=== PATIENT | male | born 1940 | race Caucasian/White ===

== ENCOUNTER 2018-01-30 07:00 | Inpatient (IN) | payer MEDICARE ==
[~2018-01-30] VITALS: Ht 180.3 cm; Wt 116.8 kg
[~2018-01-30 07:00] MED LIST: ASPI-496 PO; LEVO150T5 PO; LOSA50TA7 PO; PSYL0.528 PO; SPIR25TA5 PO
[2018-02-01] MEDS ORDERED: TRANEXAMIC ACID 100 MG/ML, 10ML ONE ×2 (07:39→14:19)
[2018-02-01] MEDS ORDERED: KETOROLAC 60 MG/2 ML ONE (07:39)
[2018-02-01] MEDS ORDERED: ROPIvacaine/PF 0.2%, 20 ML ONE (07:40)
[2018-02-01] MEDS ORDERED: EPINEPHRINE 1 MG/ML, 1ML ONE (07:40)
[2018-02-01] MEDS ORDERED: morphine SULFATE/PF 1 MG/ML, 10ML ONE (07:40)
[2018-02-01] MEDS ORDERED: VANCOMYCIN PER PHARMACY MC STA (11:02)
[2018-02-01] MEDS ORDERED: ACETAMINOPHEN 500 MG TABLET ONE (11:33)
[2018-02-01] MEDS ORDERED: GABAPENTIN 300 MG CAPSULE ONE (11:33)
[2018-02-01] MEDS ORDERED: LACTATED RINGERS 1,000 ML IV SCH (11:35)
[2018-02-01] MEDS ORDERED: FENTANYL PF 250 MCG/5ML ONE (11:36)
[2018-02-01] MEDS ORDERED: MIDAZOLAM 1 MG/ML, 2ML ONE (11:36)
[2018-02-01] MEDS ORDERED: OXYC20TA42 PO (11:43)
[2018-02-01] MEDS ORDERED: CELE200C PO (11:43)
[2018-02-01] MEDS ORDERED: ACETAMINOPHEN 500 MG TABLET PO ONE (12:00)
[2018-02-01] MEDS ORDERED: GABAPENTIN 300 MG CAPSULE PO ONE (12:00)
[2018-02-01] MEDS ORDERED: VANCOMYCIN 2,000 MG in SODIUM CHLORIDE 0.9% 500 ML IV ONE (12:30)
[2018-02-01] MEDS ORDERED: ONDANSETRON ODT 8 MG PO PRN (14:00)
[2018-02-01] MEDS ORDERED: PROMETHAZINE 25 MG/ML, 1ML IV PRN (14:00)
[2018-02-01] MEDS ORDERED: FENTANYL PF 100 MCG/2ML IV PRN (14:00)
[2018-02-01] MEDS ORDERED: hydrALAzine 20 MG/ML, 1ML IV PRN (14:00)
[2018-02-01] MEDS ORDERED: EPHEDRINE 50 MG/ML, 1ML IVPush PRN (14:00)
[2018-02-01] MEDS ORDERED: ONDANSETRON 2MG/ML, 2ML IV PRN (14:00)
[2018-02-01] MEDS ORDERED: ALBUTEROL SULFATE 2.5 MG/3 ML NPPB PRN (14:00)
[2018-02-01] MEDS ORDERED: MIDAZOLAM 1 MG/ML, 2ML IV PRN (14:00)
[2018-02-01] MEDS ORDERED: MEPERIDINE/PF 25MG/0.5ML IVPush PRN (14:00)
[2018-02-01] MEDS ORDERED: OXYcodone 5 MG/5 ML ORAL.SOL UDC PO PRN (14:00)
[2018-02-01] MEDS ORDERED: PROMETHAZINE 12.5 MG SUPP PR PRN (14:00)
[2018-02-01] MEDS ORDERED: LABETALOL 5MG/ML, 20ML IV PRN (14:00)
[2018-02-01] MEDS ORDERED: LORazepam 2 MG/ML, 1ML IVPush PRN (14:00)
[2018-02-01] MEDS ORDERED: MORPHINE SULFATE 4 MG/ML, 1ML IVPush PRN (14:00)
[2018-02-01] MEDS ORDERED: HYDROmorphone 2 MG/ML, 1ML ONE (14:58)
[2018-02-01] MEDS ORDERED: OXYcodone 5 MG/5 ML ORAL.SOL UDC ONE (14:59)
[2018-02-01] MEDS: HYDROmorphone 1 MG/ML, 1ML IV PRN ×2 (15:05→15:26)
[2018-02-01] MEDS ORDERED: POTASSIUM CHLORIDE 10 MEQ in D5%-0.45% NACL 1,000 ML IV SCH (17:30)
[2018-02-01] MEDS ORDERED: ONDANSETRON 2MG/ML, 2ML IVPush PRN (17:30)
[2018-02-01] MEDS ORDERED: MAGNESIUM HYDROXIDE 8%, 30ML UDC PO PRN (17:30)
[2018-02-01] MEDS ORDERED: SENNA/DOCUSATE TABLET PO PRN (17:30)
[2018-02-01] MEDS ORDERED: ALUMINUM/MAG/SIMETHICONE 30 ML UDC PO PRN (17:30)
[2018-02-01] MEDS ORDERED: OXYcodone/APAP 5/325MG TABLET PO PRN (17:30)
[2018-02-01] MEDS ORDERED: BISACODYL 10 MG SUPP PR PRN (17:30)
[2018-02-01] MEDS ORDERED: ACETAMINOPHEN 325 MG TABLET PO PRN (17:30)
[2018-02-01] MEDS ORDERED: HYDROmorphone 2MG TABLET PO PRN (17:30)
[2018-02-01 20:50] VITALS: BP 115/69
[2018-02-01] MEDS: CEFAZOLIN PMX 1GM/50ML 50 ML IVPB SCH (21:36)
[2018-02-01] MEDS: DOCUSATE 100 MG CAPSULE PO SCH (21:36)
[2018-02-01] MEDS: HYDROcodone/APAP 10/325 MG TABLET PO PRN (21:45)
[2018-02-02 00:15] VITALS: BP 118/66
[2018-02-02 03:59] VITALS: BP 100/56
[2018-02-02] MEDS: CEFAZOLIN PMX 1GM/50ML 50 ML IVPB SCH (05:38)
[2018-02-02] MEDS ORDERED: LEVOTHYROXINE 150 MCG TABLET PO SCH (06:00)
[2018-02-02] MEDS ORDERED: ASPIRIN 81 MG TABLET EC PO SCH (06:00)
[2018-02-02] MEDS ORDERED: ENOXAPARIN 30 MG/0.3 ML SQ SCH (06:00)
[2018-02-02] MEDS: HYDROcodone/APAP 10/325 MG TABLET PO PRN ×2 (06:00→12:02)
[2018-02-02 07:17] VITALS: BP 116/61
[2018-02-02] MEDS: DOCUSATE 100 MG CAPSULE PO SCH (08:55)
[2018-02-02] MEDS ORDERED: LOSARTAN 50MG TABLET PO SCH (09:00)
[2018-02-02] MEDS ORDERED: SPIRONOLACTONE 25 MG TABLET PO SCH (09:00)
[2018-02-02] MEDS ORDERED: PSYLLIUM PACKET PO SCH (09:00)
[2018-02-02] MEDS ORDERED: MULTIVITAMINS/MINERALS TABLET PO SCH (09:00)
[2018-02-02] MEDS ORDERED: OXYC-307 PO (11:58)
[2018-02-02] MEDS ORDERED: ASPI-621 PO (11:59)
[2018-02-02 12:47] VITALS: BP 126/58
[2018-02-02] MEDS ORDERED: KETOROLAC 30 MG/1 ML IV SCH (17:30)
== END 2018-02-02 13:20 | disposition home or self-care (01) | DRG 470 ==
LOC: EDBD 07:00 → ORIP 02-01 10:15 → 4NOR 02-01 16:33 → DCLOUNGE 02-02 13:09
PROVIDERS: ADMIT Orthopaedic Surgery; ATTEND Orthopaedic Surgery
PROC: 0SRD0J9 Replacement of Left Knee Joint with Synthetic Substitute, Cemented, Open Approach (ICD-10-PCS; principal; 2018-02-01 12:30)
DX: M17.12 Unilateral primary osteoarthritis, left knee (principal); G47.30 Sleep apnea, unspecified; F17.200 Nicotine dependence, unspecified, uncomplicated; E03.9 Hypothyroidism, unspecified; I10 Essential (primary) hypertension; Z82.3 Family history of stroke; Z79.899 Other long term (current) drug therapy
CPT/HCPCS: 87081; 93005; C1713; G0378; J0171; J0690; J1170; J1650; J1885; J2250; J2274; J2795; J3010; J3370; J3480; C1776; J7040; J7120